=== PATIENT | male | born 1960 | race Caucasian/White ===

== ENCOUNTER 2020-11-27 12:23 | Inpatient (IN) | payer MEDICAID ==
[~2020-11-27] VITALS: Ht 165.1 cm; Wt 97.1 kg
[2020-11-27] VITALS (12 sets, daily range): BP systolic 103–166; BP diastolic 61–114
--- NOTE | 2020-11-27 12:47 | NUR ---
MARISABEL. HANDED ON [employer] SWAP[facility].
--- NOTE | 2020-11-27 14:01 | NUR ---
Patient taken to CT scan via wheelchair by tech.
--- NOTE | 2020-11-27 14:59 | NUR ---
Dr. Mullen and Markel Witt is evaluating patient at bedside.
--- NOTE | 2020-11-27 14:59 | NUR ---
Patient ambualted to bed 11. RN evaluating the patient at bedside.
--- NOTE | 2020-11-27 15:00 | NUR ---
60 y/o M BIB self c/o abdominal pain and bloating x 1 day. Patient reports he has had intermittent abdominal pain to RLQ x 2-3 weeks, however, states no pain at this time. Patient reports bloating and pressure with associated nausea, SOB and cough. Patient also reports swelling to bilateral feet since Thursday. Patient denies vomiting, diarrhea, fever, chills, chest pain, dizziness. Pt placed into media analytics manager showing HR 171. SpO2 97% on room air; RR even/unlabored. Bed locked in lowest position, side rails x 2, call light in reach. PMH/Sx/Meds: Denies Allergies: Tylenol
[2020-11-27] MEDS ORDERED: NACL 0.9% 1,000 ML IV ONE (15:05)
--- NOTE | 2020-11-27 15:26 | NUR ---
EMt at bedside.
--- NOTE | 2020-11-27 15:32 | NUR ---
Blood sample and cultures collected, handed to CPT Neda at ER bedside.
[2020-11-27 15:35] LABS: BASOPHILS % (AUTO) 0.4 % (0.0-2.0); EOSINOPHILS # (AUTO) 0.1 K/uL (0-0.4); EOSINOPHILS % (AUTO) 1.4 % (0.0-4.0); LYMPHOCYTES # (AUTO) 1.4 K/uL (2.0-11.5); LYMPHOCYTES % (AUTO) 26.9 % (20.5-51.1); MEAN CORPUSCULAR HEMOGLOBIN 33 pg (27-31); MEAN CORPUSCULAR HGB CONC 33 g/dL (33-37); MEAN CORPUSCULAR VOLUME 97.9 fL (80-94); MONOCYTES # (AUTO) 0.4 K/uL (0.8-1.0); MONOCYTES % (AUTO) 7.5 % (1.7-9.3); NEUTROPHILS # (AUTO) 3.3 K/uL (1.8-7.7); NEUTROPHILS % (AUTO) 63.8 % (42.2-75.2); PLATELET COUNT (AUTO) 130 K/uL (140-450); RED CELL DISTRIBUTION WIDTH 14.1 % (11.6-13.7); WHITE BLOOD COUNT (AUTO) 5.1 K/uL (4.8-10.8)
[2020-11-27] MEDS ORDERED: ASPIRIN 325 MG TAB ONE (15:39)
[2020-11-27] MEDS ORDERED: DILTIAZEM 25 MG/5 ML VIAL IVP ONE (15:40)
[2020-11-27] MEDS ORDERED: ASPIRIN 325 MG TAB PO ONE (15:40)
[2020-11-27] MEDS ORDERED: FUROSEMIDE 40 MG/4 ML VIAL IVP SCH (15:40)
--- NOTE | 2020-11-27 15:41 | NUR ---
Dr. Mullen and ROBERTH Witt is reevaluating patient at bedside.
--- NOTE | 2020-11-27 15:50 | NUR ---
Dr. Mullen and ROBERTH Witt at bedside reevaluating response of Cardizem and Lasix IVP.
--- NOTE | 2020-11-27 16:01 | NUR ---
Patient responsed to medication; HR 113 at this time. Patient reports "I feel better now." Will continue to monitor HR.
[2020-11-27] MEDS ORDERED: guaiFENesin DM 200/20 MG-10 ML 10 ML UDC PO PRN (16:10)
[2020-11-27] MEDS ORDERED: ZOLPIDEM 5 MG TAB PO PRN (16:10)
[2020-11-27] MEDS ORDERED: HYDROcodone/APAP 7.5/325 MG 1 TAB PO PRN (16:10)
[2020-11-27] MEDS ORDERED: ACETAMINOPHEN 325 MG TAB PO PRN (16:10)
[2020-11-27] MEDS ORDERED: NACL 0.9% 1,000 ML IV SCH (16:10)
[2020-11-27] MEDS ORDERED: POTASSIUM CHLORIDE 10 MEQ TABER PO PRN (16:10)
[2020-11-27] MEDS ORDERED: DOCUSATE SODIUM 100 MG GELCAP PO PRN (16:10)
[2020-11-27] MEDS ORDERED: ONDANSETRON 4 MG/2 ML VIAL IM/IVP PRN (16:10)
--- NOTE | 2020-11-27 16:10 | NUR ---
HR [address] Mullen and ROBERTH Witt made aware.
[2020-11-27 16:13] LABS: ALBUMIN 4.2 g/dL (3.4-5.0); ANION GAP 13.8 (8-16); CARBON DIOXIDE 26.1 mmol/L (21-32); CREATININE 1.2 mg/dL (0.6-1.3); POTASSIUM 3.9 mmol/L (3.5-5.1); TOTAL BILIRUBIN 2.4 mg/dL (0.0-1.0)
[2020-11-27] MEDS ORDERED: NITROGLYCERIN 0.4 MG TAB SL PRN (16:15)
--- NOTE | 2020-11-27 16:16 | NUR ---
Contacted ICU, spoke with Joshua who states ARYA Lucas is in another bed at this time. Call back in 5 min.
--- NOTE | 2020-11-27 16:20 | NUR ---
Urinal provided at bedside; patient unable to void at this time.
--- NOTE | 2020-11-27 16:30 | NUR ---
Bedside report given to ARYA Lucas @ ICU-3.
--- NOTE | 2020-11-27 16:30 | NUR ---
RECEIVED BEDSIDE REPORT FROM ER NURSE. ADMITTED 60 Y/O MALE WITH HX OF APPENDECTOMY AND PNA. CC OF ABD PAIN AND BLOATING SINCE AM. ADMITTING DX OF AFIB RVR AND NEW ONSET CHF. PT IS AOX4, ABLE TO MAKE NEEDS KNOWN, AMBULATORY, B/B CONTINENT. SKIN IS INTACT. AFIB RVR ON MONITOR. NO C/O PAIN, WITH C/O ABD BLOATING AND SOB. ON 2L O2 VIA NC. O2SAT 94-96%. WITH IV RAC 20G RUNNING NS AT 45CC/HR. SAFETY PRECAUTIONS IN PLACE. CALL LIGHT WITHIN REACH. WILL CONTINUE TO MONITOR
--- NOTE | 2020-11-27 16:35 | NUR ---
MRSA NARES COLLECTED AND DELIVERED TO LAB. ALLERGY RED WRIST BAND APPLIED.
--- NOTE | 2020-11-27 16:49 | NUR ---
DR HILL CALLED ON REGARDING AMIODARONE LOADING DOSE. PER DR HILL, STARTED WITH THE 150 MG LOADING DOSE, AND THEN THE AMIODARONE DRIP PER PROTOCOL. WILL INPUT ORDER.
[2020-11-27 17:02] LABS: PROTHROMBIN TIME 10.6 secs (10.8-13.4)
[2020-11-27 17:12] LABS: CHOL/HDL RATIO 4.9 (1-4.5); FREE T4 (FREE THYROXINE) 1.12 ng/dL (0.76-1.46); MAGNESIUM 2.3 mg/dL (1.8-2.4); PHOSPHORUS 4.6 mg/dL (2.5-4.9); THYROID STIMULATING HORMONE 1.55 uIU/mL (0.34-3.74)
[2020-11-27] MEDS ORDERED: AMIODARONE 150 MG in DEXTROSE 5% 100 ML IV SCH (17:15)
--- NOTE | 2020-11-27 17:20 | NUR ---
AMIODARONE IV LOADING DOSE STARTED ORDERED
--- NOTE | 2020-11-27 17:30 | NUR ---
AMIODARONE IV MAINTENANCE DOSE 1MG/MIN STARTED ORDERED
[2020-11-27] MEDS: ATORVASTATIN 20 MG TAB PO SCH (17:36)
--- NOTE | 2020-11-27 17:40 | NUR ---
SCHEDULED MEDS HEPARIN SUBQ AND LIPITOR GIVEN PER MD ORDER, MEDS EDUCATION PROVIDED, PATIENT VERBALIZED UNDERSTANDING. PATIENT TOLERATED PO AND SUBQ WELL. PATIENT AWAKE AND RESTING ON BED AT THIS TIME. DENIED OF ANY DISTRESS. SAFETY MEASURES IN PLACE.
[2020-11-27] MEDS: AMIODARONE 450 MG in DEXTROSE 5% 250 ML IV SCH (17:43)
--- NOTE | 2020-11-27 18:30 | NUR ---
PT EATING DINNER AT THIS TIME. WITH C/O DECREASED APPETITE D/T BLOATING
--- NOTE | 2020-11-27 19:10 | NUR ---
RECEIVED PATIENT FROM AM SHIFT NURSE FOR CONTINUITY OF CARE. AAOX4. RESPIRATIONS EVEN, SLIGHTLY LABORED UPON EXERTION. CONTINUES ON O2 2L VIA NC, O2SAT 94%. NO S/S RESPIRATORY DISTRESS AT THIS TIME. S1/S2 AUSCULTATED. SKIN WARM, DRY. IV SITE NOTED TO RIGHT AC 20G PATENT/INTACT, INFUSING FLUIDS AND AMIODARONE. NO C/O PAIN. ABDOMEN ROUND, SOFT, SLIGHTLY TENDER AND DISTENDED. BOWEL SOUNDS ACTIVE x4 QUADRANTS. PATIENT IS CONTINENT OF B/B. PLAN OF CARE DISCUSSED. FREQUENT ROUNDS BY ALL STAFF.
[2020-11-27] MEDS ORDERED: CRUSHER, PILL MC ONE (20:03)
[2020-11-27] MEDS: METOPROLOL 25 MG TAB PO SCH (20:22)
--- NOTE | 2020-11-27 21:13 | NUR ---
DUE MEDS GIVEN. PATIENT SITTING UP AT BEDSIDE FOR COMFORT. FREQUENT ROUNDS BY ALL STAFF.
--- NOTE | 2020-11-27 23:00 | NUR ---
PATIENT EATING SNACK AT BEDSIDE. NO ABDOMINAL DISCOMFORT NOTED AT THIS TIME. WILL CONTINUE TO MONITOR.
[2020-11-27 23:17] LABS: APPEARANCE,URINE CLOUDY (CLEAR); BILIRUBIN,URINE 2+ (NEGATIVE); BLOOD, URINE NEGATIVE (NEGATIVE); COLOR,URINE ORANGE (YELLOW); LEUKOCYTE ESTERASE ,URINE NEGATIVE (NEGATIVE); NITRITE, URINE POSITIVE (NEGATIVE); PH,URINE 5.5 (5.0-9.0); UGLUCOSE NEGATIVE (NEGATIVE)
[2020-11-27 23:32] LABS: RBC,URINE 0-5 /HPF (0-5); URINE AMORPHOUS URATE 4+ /HPF (None Seen); WBC,URINE 0-5 /HPF (0-5)
[2020-11-27 23:41] LABS: BARBITURATE, URINE NEGATIVE ng/ml (NEG <=200); BENZODIAZEPINE, URINE NEGATIVE ng/mL (NEG <=200); CANNABINOID, URINE NEGATIVE ng/mL (NEG <=50); COCAINE, URINE NEGATIVE ng/mL (NEG <=300); OPIATE, URINE NEGATIVE ng/mL (NEG <=2000); PHENCYCLIDINE SCREEN,URINE NEGATIVE ng/mL (NEG <=25)
[2020-11-28] VITALS (18 sets, daily range): BP systolic 85–140; BP diastolic 61–98
--- NOTE | 2020-11-28 00:25 | NUR ---
PT UNAVAILABLE AT THIS TIME FOR EKG
--- NOTE | 2020-11-28 01:02 | NUR ---
EKG PERFORMED ORDERED AND ABNORM RESULTS PRESENTED TO RN. RN WAS PROVIDED A COPY. A COPY WAS PLACED IN PT CHART ALONG W/ STRIP
--- NOTE | 2020-11-28 01:07 | NUR ---
PATIENT HAD A BM. ASSISTED FROM BEDSIDE COMMODE TO BED SAFELY. ALL NEEDS ANTICIPATED AND MET. FREQUENT VISUAL CHECKS BY ALL STAFF.
--- NOTE | 2020-11-28 03:31 | NUR ---
PATIENT IS ASLEEP.
[2020-11-28 05:25] LABS: BASOPHILS % (AUTO) 0.2 % (0.0-2.0); EOSINOPHILS % (AUTO) 0.1 % (0.0-4.0); HEMOGLOBIN 14.7 g/dL (12.0-18.0); LYMPHOCYTES # (AUTO) 0.7 K/uL (2.0-11.5); LYMPHOCYTES % (AUTO) 11.2 % (20.5-51.1); MEAN CORPUSCULAR HEMOGLOBIN 33 pg (27-31); MEAN CORPUSCULAR HGB CONC 33 g/dL (33-37); MEAN CORPUSCULAR VOLUME 98.5 fL (80-94); MONOCYTES # (AUTO) 0.5 K/uL (0.8-1.0); MONOCYTES % (AUTO) 7.1 % (1.7-9.3); NEUTROPHILS # (AUTO) 5.2 K/uL (1.8-7.7); NEUTROPHILS % (AUTO) 81.4 % (42.2-75.2); PLATELET COUNT (AUTO) 120 K/uL (140-450); RED BLOOD CELL COUNT(AUTO) 4.47 MIL/uL (4.20-6.10); RED CELL DISTRIBUTION WIDTH 14.1 % (11.6-13.7); WHITE BLOOD COUNT (AUTO) 6.4 K/uL (4.8-10.8)
--- NOTE | 2020-11-28 05:51 | NUR ---
PATIENT RESTING COMFORTABLY IN BED. NO S/S RESPIRATORY DISTRESS. NO C/O PAIN. FREQUENT ROUNDS BY ALL STAFF.
[2020-11-28 06:11] LABS: ANION GAP 15.4 (8-16); CARBON DIOXIDE 24.4 mmol/L (21-32); CREATININE 1.3 mg/dL (0.6-1.3); POTASSIUM 3.8 mmol/L (3.5-5.1)
[2020-11-28 07:08] LABS: T4 (THYROXINE) 7.9 ug/dL (4.5-12.0)
--- NOTE | 2020-11-28 07:12 | NUR ---
RECEIVED BEDSIDE REPORT FROM RIBBON CLEANER NURSE RADHA FOR CONTINUITY OF CARE. PATIENT IS SLEEPING ON BED COMFORTABLY AT THIS TIME, AROUSABLE TO VOICE. RESPIRATION EVEN, UNLABORED ON 2 LPM VIA NC, LUNG SOUND DIMINISHES, SPO2 97% AT THIS TIME. NO SIGNS OF ACUTE DISTRESS NOTED. IV ON RAC 20G, CLEAN AND INTACT, RUNNING NS AT 40 ML/HR AND AMIODARONE DRIP HELD DUE TO LOW BP. SKIN WARM TO TOUCH, CLEAN AND DRY. PATIENT IS CONTINENT, AND ABLE TO USE THE BEDSIDE COMMODE WITH MINIMAL ASSISTANCE. SAFETY MEASURES IN PLACE. BED IN LOW POSITION, CALL LIGHT WITHIN REACH, AND BED LOCKED.
--- NOTE | 2020-11-28 08:17 | NUR ---
PATIENT IS EATING BREAKFAST ON BED AT THIS TIME. DENIED OF ANY DISTRESS. SAFETY MEASURES IN PLACE.
--- NOTE | 2020-11-28 08:21 | NUR ---
DR HALL IS ASSESSING PATIENT AT BEDSIDE AND DISCUSSING PLAN OF CARE. NO SIGNS OF ACUTE DISTRESS NOTED. SAFETY MEASURES IN PLACE.
[2020-11-28] MEDS: ECOTRIN 81 MG TABEC PO SCH (08:39)
[2020-11-28] MEDS: PANTOPRAZOLE 40 MG TABEC PO SCH (08:39)
[2020-11-28] MEDS: METOPROLOL 25 MG TAB PO SCH ×2 (08:39→21:13)
--- NOTE | 2020-11-28 08:45 | NUR ---
SCHEDULED AM MEDS ADMINISTERED PER MD ORDER, MEDS EDUCATION PROVIDED, PATIENT VERBALIZED UNDERSTANDING. PATIENT AWAKE AND RESTING ON BED AT THIS TIME. DENIED OF ANY DISTRESS. NO SIGNS OF ACUTE DISTRESS NOTED. SAFETY MEASURES IN PLACE. INSTRUCTED PATIENT TO USE THE CALL LIGHT FOR ANY ASSISTANCE AND PATIENT SAID OK.
--- NOTE | 2020-11-28 08:47 | NUR ---
PER DR HALL, RESUMED AMIODARONE DRIP SINCE BP IS STABLE AND KEEP HEART RATE BELOW 120 BPM. RESUMED PER MD ORDER.
--- NOTE | 2020-11-28 08:47 | NUR ---
PATIENT HAS BEEN SCREENED AND CATEGORIZED MODERATE NUTRITION RISK. PATIENT WILL BE SEEN WITHIN 3-5 DAYS OF ADMISSION. 11/30/20 12/02/[address]
[2020-11-28] MEDS: FUROSEMIDE 40 MG/4 ML VIAL IVP SCH ×2 (08:52→17:04)
[2020-11-28] MEDS ORDERED: lisinopriL 5 MG TAB PO SCH (09:00)
--- NOTE | 2020-11-28 09:26 | NUR ---
ROCEPHIN GIVEN, MED EDUCATION PROVIDED, PATIENT VERBALIZED UNDERSTANDING. US TECH IS AT BEDSIDE DOING US. NO SIGNS OF ACUTE DISTRESS NOTED. SAFETY MEASURES IN PLACE.
--- NOTE | 2020-11-28 10:16 | NUR ---
DC PLANNIN60 YEARS OLD MALE PATIENT WAS ADMITTED FROM HOME WITH A DX OF A-FIB WITH RVR, NEW ONSET OF CHF. PT HAS NO MEDICAL HISTORY. CXR SHOWED MILD CARDIOMEGALY AND MODERATE INTERSTITIAL PULMONARY EDEMA. CT ABD SHOWED SMALL RIGHT PLEURAL EFFUSION AND TRANCE LEFT PLEURAL EFFUSION. ADMINISTERED IVF, AMIODARONE DRIP AND ROCEPHIN IV ABX AND CONTINUED HOME MEDS. CONSULTED WITH PULMO AND CARDIO. DC PLAN TO GO HOME WHEN STABLE. CM TO FOLLOW
[2020-11-28] MEDS: AMIODARONE 450 MG in DEXTROSE 5% 250 ML IV SCH (10:30)
--- NOTE | 2020-11-28 10:33 | NUR ---
PATIENT IS RESTING IN BED AT THIS TIME. RESPIRATION EVEN, UNLABORED ON 2 LPM VIA NC. DENIED OF ANY DISTRESS. SAFETY MEASURES IN PLACE.
--- NOTE | 2020-11-28 11:22 | NUR ---
DR HILL IS ASSESSING PATIENT AT BEDSIDE. DISCUSSED PLAN OF CARE WITH PATIENT.
--- NOTE | 2020-11-28 11:48 | NUR ---
LUNCH TRAY DELIVERED TO PATIENT, PATIENT IS EATING LUNCH ON BED. DENIED OF ANY DISTRESS. SAFETY MEASURES IN PLACE.
--- NOTE | 2020-11-28 11:52 | NUR ---
DR MARY IS ASSESSING AND TALKING TO PATIENT AT BEDSIDE.
[2020-11-28] MEDS ORDERED: DIGOXIN 0.25 MG/ML AMP IV SCH (12:00)
--- NOTE | 2020-11-28 12:15 | NUR ---
0.5 MG DIGOXIN ONCE TIME ORDER GIVEN ORDER BY DR HILL, MED EDUCATION PROVIDED, PATIENT VERBALIZED UNDERSTANDING. EXPLAINED TO PATIENT THAT HE IS CLEAR FROM CARDIAC MD AND WILL BE TRANSFER TO TELE UNIT, PATIENT VERBALIZED UNDERSTANDING. SAFETY MEASURES IN PLACE.
--- NOTE | 2020-11-28 12:19 | NUR ---
RUDY THE MEAGHANECE IS CALLING FOR UPDATE, OBTAINED PERMISSION FROM PATIENT AND OK TO GIVE INFORMATION. UPDATED RUDY WITH PATIENT'S CURRENT CONDITION AND PLAN OF CARE. RUDY WAS AWARE THAT PATIENT WILL BE TRANSFER TO TELE UNIT THIS EVENING.
--- NOTE | 2020-11-28 13:20 | NUR ---
PATIENT REQUESTS FOR AN EXTRA BLANKET, PROVIDED. PATIENT IS RESTING ON BED AT THIS TIME. NO SIGNS OF ACUTE DISTRESS NOTED. SAFETY MEASURES IN PLACE.
--- NOTE | 2020-11-28 15:40 | NUR ---
PATIENT IS NAPPING ON BED. RESPIRATION EVEN, UNLABORED ON 2 LPM VIA NC. NO SIGNS OF ACUTE DISTRESS NOTED. SAFETY MEASURES IN PLACE.
[2020-11-28] MEDS: ATORVASTATIN 20 MG TAB PO SCH (17:04)
--- NOTE | 2020-11-28 17:09 | NUR ---
ADMINISTERED SCHEDULED MEDS PER MD ORDER, MEDS EDUCATION PROVIDED. PATIENT VERBALIZED UNDERSTANDING. PATIENT IS AWAKE AND RESTING ON BED. NO SIGNS OF DISTRESS NOTED. SAFETY MEASURES IN PLACE.
--- NOTE | 2020-11-28 17:22 | NUR ---
REPORT GIVEN TO LINDA KOENIG, PATIENT WILL BE TRANSFER TO ROOM 123B.
--- NOTE | 2020-11-28 17:25 | NUR ---
RECEIVED REPORT FOR KATIE KOENIG FOR CONTINUITY OF CARE. PATIENT IS AOX4, ABLE TO MAKE NEEDS KNOWN, AND CAN AMBULATE. ON 2L NASAL CANNULA. AFIB ON MONITOR. ON CARDIAC DIET. USES THE URINAL. IV CLEAN, DRY, AND INTACT, ON RIGHT ANTECUBITAL 20G INFUSING NORMAL SALINE 0.9 AT 45 ML/HR. BLOOD CULTURE PENDING. METAL REFINER AND SAFETY MEASURES IN PLACE. BED LOCKED, BED IN LOW POSITION. WILL CONTINUE TO MONITOR.
--- NOTE | 2020-11-28 17:34 | NUR ---
PATIENT IS TRANSFERRED TO ROOM 123B WITH WHEELCHAIR. TELE MONITOR APPLIED. ALL BELONGINGS TRANSFERRED WITH PATIENT. PATIENT IS IN STABLE CONDITION.
--- NOTE | 2020-11-28 17:40 | NUR ---
PATIENT ARRIVED ON UNIT VIA WHEELCHAIR. ALL QUESTIONS ANSWERED AND NEEDS PROVIDED. WILL CONTINUE TO MONITOR.
[2020-11-28] MEDS ORDERED: DIGOXIN 0.25 MG/ML AMP IV ONE (18:00)
--- NOTE | 2020-11-28 18:46 | NUR ---
CHECKED ON PATIENT. RESTING, NO SIGN OF DISTRESS OR PAIN. WILL CONTINUE TO MONITOR. WILL ENDORSE TO DUCK OPERATOR RN.
--- NOTE | 2020-11-28 19:25 | NUR ---
ENDORSED CARE TO NIKOS KOENIG FOR CONTINUITY OF CARE.
--- NOTE | 2020-11-28 19:30 | NUR ---
RECEIVED CARE AND REPORT FROM DAYSHIFT RN. PATIENT ALERT AND ORIENTED X4 TO PERSON, PLACE TIME AND EVENT. PATIENT RESTING IN THE BED IN A POSITION OF COMFORT, HOB 30 DEGREES, DENIES SOB, DIFFICULTY BREATHING AND CHEST PAIN WHEN ASKED. PATIENT DENIES ANY COMPLAINTS OF PAIN WHEN ASKED. PATIENT ON MD ORDER OF CARDIAC DIET, TOLERATING WELL. PATIENT CONNECTED TO NASAL CANULA AT 2 LPM. PATIENT HEART AND LUNG SOUNDS AUSCULTATED, IRREGULAR HR, LUNG SOUNDS CLEAR EQUAL BILATERALLY. ABDOMINAL SOUNDS AUSCULTATED, NORMOACTIVE X4 ALL QUADRANTS, FLATUS PRESENT. PATIENT CONNECTED TO BEDSIDE TELE MONITOR, AFIB HR 94, RR 20, OXYGEN SATURATION AT 97%, NO OBVIOUS SIGNS OF DISTRESS OBSERVED WHILE AT BEDSIDE. PATIENT CURRENT IV SITES INCLUDE RIGHT AC 20G RUNNING NS 0.9% AT 45 ML/HR. IV SITE INTACT, DRESSING DRY AND FLUSHES WELL. PATIENT CURRENTLY ABLE TO AMBULATE WITH RN ASSISTANCE AND ABLE TO USE BEDSIDE URINAL. PATIENT DENIES HAVING ANY DIFFICULTY WITH URINATION OR BOWEL MOVEMENTS. SKINS INTACT. BED LOCKED AND LOWERED INTO A POSITION OF SAFETY AND PATIENT BEING OFFLOADED WITH USE OF PILLOWS AND ASSISTED WITH REPOSITIONING. PATIENT ORIENTED TO THE ROOM, PROMOTING A RESTFUL ENVIRONMENT WITH DECREASED STIMULI, AND NURSE CALL LIGHT GIVEN TO PATIENT. WILL CONTINUE TO REASSESS OFTEN, CLOSELY MONITOR AND FREQUENTLY ROUND THROUGHOUT THE SHIFT.
--- NOTE | 2020-11-28 20:10 | NUR ---
PATIENT HAD URINE VOID OF 400 ML. NO OBVIOUS SIGNS OF DISTRESS OBSERVED WHILE AT BEDSIDE. WILL CONTINUE TO CLOSELY MONITOR AND FREQUENTLY ROUND.
[2020-11-28] MEDS: APIXABAN 2.5 MG TAB PO SCH (21:14)
--- NOTE | 2020-11-28 21:23 | NUR ---
SCHEDULED MEDICATIONS ADMINISTERED ORDERED BY MD. TOLERATING THERAPIES WELL, NO OBVIOUS SIGNS OF DISTRESS OBSERVED. WILL CONTINUE TO CLOSELY MONITOR AND FREQUENTLY ROUND.
--- NOTE | 2020-11-28 23:18 | NUR ---
PATIENT RESTING IN A POSITION OF COMFORT, VS STABLE, PATIENT STATED TRYING TO GET SOME SLEEP WHEN ASKED. NO OBVIOUS SIGNS OF DISTRESS OBSERVED WHILE AT BEDSIDE. WILL CONTINUE TO CLOSELY MONITOR AND FREQUENTLY ROUND.
[2020-11-29] VITALS: BP 126/90
[2020-11-29] MEDS ORDERED: DIGOXIN 0.25 MG/ML AMP IV ONE
--- NOTE | 2020-11-29 00:25 | NUR ---
SCHEDULED MEDICATIONS GIVEN ORDERED BY THE MD. PATIENT TOLERATING THERAPIES WELL. WILL CONTINUE TO CLOSELY MONITOR AND FREQUENTLY ROUND.
--- NOTE | 2020-11-29 00:39 | NUR ---
PATIENT HAD SECOND VOID OF 300 ML. NO OBVIOUS SIGNS OF DISTRESS OBSERVED WHILE AT BEDSIDE. PATIENT STATES THAT HE FEELS GOOD WHEN ASKED. NO OBVIOUS SIGNS OF DISTRESS OBSERVED WHILE AT BEDSIDE. WILL CONTINUE TO CLOSELY MONITOR AND FREQUENTLY ROUND.
--- NOTE | 2020-11-29 02:31 | NUR ---
PATIENT ASLEEP, NO OBVIOUS SIGNS OF DISTRESS OBSERVED WHILE AT BEDSIDE. VS STABLE, WILL COTMEAGHANNPETRAT O CLOSELY MONITOR AND FREQUENTLY ROUND.
[2020-11-29 04:00] VITALS: BP 134/75
--- NOTE | 2020-11-29 04:39 | NUR ---
PATIENT VS STABLE, RESTING IN A POSITION OF COMFORT, TOLERATING THERAPIES WELL. WILL CONTINUE TO CLOSELY MONITOR AND FREQUENTLY ROUND.
[2020-11-29 04:56] LABS: BASOPHILS % (AUTO) 0.4 % (0.0-2.0); EOSINOPHILS # (AUTO) 0.1 K/uL (0-0.4); EOSINOPHILS % (AUTO) 1.5 % (0.0-4.0); HEMATOCRIT 40.6 % (36-52); HEMOGLOBIN 13.7 g/dL (12.0-18.0); LYMPHOCYTES # (AUTO) 0.9 K/uL (2.0-11.5); LYMPHOCYTES % (AUTO) 13.8 % (20.5-51.1); MEAN CORPUSCULAR HEMOGLOBIN 33 pg (27-31); MEAN CORPUSCULAR HGB CONC 34 g/dL (33-37); MEAN CORPUSCULAR VOLUME 96.5 fL (80-94); MONOCYTES # (AUTO) 1.1 K/uL (0.8-1.0); MONOCYTES % (AUTO) 15.7 % (1.7-9.3); NEUTROPHILS # (AUTO) 4.6 K/uL (1.8-7.7); NEUTROPHILS % (AUTO) 68.6 % (42.2-75.2); PLATELET COUNT (AUTO) 98 K/uL (140-450); RED BLOOD CELL COUNT(AUTO) 4.21 MIL/uL (4.20-6.10); RED CELL DISTRIBUTION WIDTH 13.9 % (11.6-13.7); WHITE BLOOD COUNT (AUTO) 6.7 K/uL (4.8-10.8)
[2020-11-29 07:24] LABS: ANION GAP 13.9 (8-16); CARBON DIOXIDE 26.9 mmol/L (21-32); CREATININE 1.3 mg/dL (0.6-1.3); POTASSIUM 3.8 mmol/L (3.5-5.1)
--- NOTE | 2020-11-29 07:30 | NUR ---
REPORT AND CARE ENDORSED TO DAYSHIFT RN, VS STABLE.
--- NOTE | 2020-11-29 07:32 | NUR ---
RECEIVED REPORT FROM NIGHT NURSE. PER NIGHT NURSE PT IS A&OX4. PT IS ON A CARDIAC DIET AND BREATHING ON 2LNC. PT IS ON A CARDIAC DIET AND USES URINAL. PT'S SKIN IS INTACT.PT DENIED PAIN ALL NIGHT. CXR FOUND BILAT PLEURAL EFFUSION. ABDCT W/O CONTRAST FUND A HIATAL HERNIA WITH FAT TISSUE. INTRODUCED MYSELF TO PT. CALL LIGHT IS WITHIN REACH. WILL CONTINUE PLAN OF CARE.
[2020-11-29 08:00] VITALS: BP 139/77
[2020-11-29] MEDS: APIXABAN 2.5 MG TAB PO SCH ×2 (09:00→21:00)
[2020-11-29] MEDS: ECOTRIN 81 MG TABEC PO SCH (09:00)
[2020-11-29] MEDS ORDERED: lisinopriL 5 MG TAB PO SCH (09:00)
[2020-11-29] MEDS: METOPROLOL 25 MG TAB PO SCH (09:45)
[2020-11-29] MEDS: PANTOPRAZOLE 40 MG TABEC PO SCH (09:45)
[2020-11-29] MEDS: FUROSEMIDE 40 MG/4 ML VIAL IVP SCH ×2 (09:46→17:29)
--- NOTE | 2020-11-29 09:55 | NUR ---
ADMINISTERED SCHEDULED MEDICATIONS PER MD ORDER. VS: BP:139/77, RI:94, RR:20. HELD ELIQUIS AND ASPIRIN DUE TO PLT LEVEL BEING 98L AND LEIA HIGH RISK FOR BLLEDING. PT WAS EDUCATED ON MEDICATIONS MOA AND SIDE EFFECTS. PT WAS ALSO NOTIFIED OF THE HELDING OF ELIQUIS AND ASPIRIN DUE TO LOW PLT COUNT. PT VERBALIZED UNDERSTANDING.PT HAD QUESTIONS ON HOW TO REDUCE DRY THROAT. PT WAS EDUCATED ON THE IMPORTANCE OF HYDRATION. I PLACED A PILLOW BEHIND PTS BACK ALONG WITH HOB TO FACILITATE BREATHING. CALL LIGHT IS WITHIN REACH. WILL CONTINUE TO MONITOR.
--- NOTE | 2020-11-29 11:07 | NUR ---
DAUGHTER TEJAS MARTIN CALLED STATING THAT SHE WANTED TO SPEAK TO PT'S MD. SHE SAID MD WAS SUPPOSED TO CALL HER YESTERDAY PER NURSE IN CARE OF PT YESTERDAY. HER PHONE NUMBER IS [phone]. I TOLD HER I WOUL NOTIFY THE DOCTOR AND UPDATE HER WITH THE STATUS OF THAT CALL SOON POSSIBLE.
--- NOTE | 2020-11-29 11:36 | NUR ---
NOTIFIED OF PT'S DAUGHTER REQUEST TO SPEAK TO HIM IN REGARDS PT STATUS. I PROVIDED PHONE NUMBER OF PT'S DAUGHTER [id number]. DR STATED HE WILL CALL HER SOON HE HAS A CHANCE PER MD HALL.WILL NOTIFY PTY'S DAUGHTER MIRI OF MESSAGE.
[2020-11-29 12:00] VITALS: BP 115/81
[2020-11-29] MEDS: DIGOXIN 0.25 MG TAB PO SCH (12:32)
--- NOTE | 2020-11-29 12:36 | NUR ---
ADMINISTERED DIGOXIN 0.25 MG TABLET SCHEDULED CHECK VITAL SIGNS BP 126/82 NM 99. NOTIFIED TRAINING OFFICER FOR GIVING MEDICATION. SAFETY MEASURES IN PLACE AND CALL LIGHT WITHIN REACH. WILL CONTINUE TO MONITOR.
--- NOTE | 2020-11-29 13:37 | NUR ---
ATTEMPTED TO REACH PT'S DAUGHTER MS. MIRI MARTIN AT . SHE DID NOT SPORT PSYCHOLOGIST. I LEFT A MESSAGE DISCUSSING MD ORDER OF CALLING HER BACK SOON HE WAS ABLE TOO.
[2020-11-29 16:00] VITALS: BP 127/85
[2020-11-29] MEDS: ATORVASTATIN 20 MG TAB PO SCH (17:19)
--- NOTE | 2020-11-29 17:33 | NUR ---
ADMINISTERED SCHEDULED MEDICATIONS PER MD ORDER. VS: B/P 127/77, PA: 95, RR:22. PT AND FAMILY WERE EDUCATED ABOUT MEDICATIONS, MOA, SIDE EFFECTS AND DISEASE PROCESS. PT AND FAMILY WERE READILY AVAILABLE TO LEARN ABOUT CHANGING LIFE STYLE CHANGES SUCH DIET, EXERCISED AND WEIGHT REDUCTION. PT AND FAMILY VERBALIZED UNDERSTANDING. PT APPEARS NOT TO BE IN DISTRESS. PT IS SITTING WITH HOB UP AND ONE PILLOW ON BACK. CALL LIGHT IS WITHIN REACH. WILL CONTINUE TO MONITOR.
--- NOTE | 2020-11-29 19:35 | NUR ---
RECEIVED REPORT FROM AM RN. PT ON BED SITTING AWAKE, ALERT NMO SOB NOTED. IVF OF NS INFUSING TKO ON THE RAC 20G. DENIES PAIN. SAFETY MEASURES IN PLACE. CALL LIGHT WITHIN REACH.
--- NOTE | 2020-11-29 19:35 | NUR ---
ENDORSED TO NIGHT NURSE FOR CONTINUITY OF CARE.
[2020-11-29 20:00] VITALS: BP 125/70
[2020-11-29] MEDS: METOPROLOL 50 MG TAB PO SCH (20:46)
--- NOTE | 2020-11-29 20:46 | NUR ---
MEDICATION GIVEN SCHEDULED PER MD ORDERED.
[2020-11-30] VITALS: BP 132/88
--- NOTE | 2020-11-30 02:01 | NUR ---
MADE ROUNDS PATIENT ASLEEP IN NO ACUTE DISTRESS.
[2020-11-30 04:00] VITALS: BP 142/96
[2020-11-30 05:29] LABS: BASOPHILS % (AUTO) 0.5 % (0.0-2.0); EOSINOPHILS # (AUTO) 0.2 K/uL (0-0.4); EOSINOPHILS % (AUTO) 3.7 % (0.0-4.0); HEMOGLOBIN 14.8 g/dL (12.0-18.0); LYMPHOCYTES # (AUTO) 1.6 K/uL (2.0-11.5); LYMPHOCYTES % (AUTO) 27.3 % (20.5-51.1); MEAN CORPUSCULAR HEMOGLOBIN 33 pg (27-31); MEAN CORPUSCULAR HGB CONC 34 g/dL (33-37); MONOCYTES # (AUTO) 0.9 K/uL (0.8-1.0); MONOCYTES % (AUTO) 14.8 % (1.7-9.3); NEUTROPHILS # (AUTO) 3.1 K/uL (1.8-7.7); NEUTROPHILS % (AUTO) 53.7 % (42.2-75.2); PLATELET COUNT (AUTO) 114 K/uL (140-450); RED BLOOD CELL COUNT(AUTO) 4.54 MIL/uL (4.20-6.10); RED CELL DISTRIBUTION WIDTH 13.5 % (11.6-13.7); WHITE BLOOD COUNT (AUTO) 5.8 K/uL (4.8-10.8)
[2020-11-30 06:49] LABS: ANION GAP 10.3 (8-16); CARBON DIOXIDE 32.2 mmol/L (21-32); CREATININE 1.3 mg/dL (0.6-1.3); POTASSIUM 3.5 mmol/L (3.5-5.1)
--- NOTE | 2020-11-30 07:25 | NUR ---
ENDORSED TO AM RN FOR CONTINUITY OF CARE. PT IN STABLE CONDITION.
--- NOTE | 2020-11-30 07:27 | NUR ---
RECEIVED BEDSIDE REPORT FROM MACHINE TURNER NURSE FOR CONTINUITY OF CARE. PT IS AO X4, ABLE TO MAKE NEEDS KNOWN. RESPIRATIONS EVEN AND UNLABORED. ON ROOM AIR AND NO RESPIRATORY DISTRESS NOTED. SKIN IS WARM, DRY, AND NON-DIAPHORETIC. IV SITE ON RAC 20G. INTACT AND PATENT. IV SITE RUNNING TKO. PLAN OF CARE DISCUSSED. SAFETY PRECAUTIONS IN PLACE. BED IN LOW POSITION. CALL LIGHT WITHIN REACH. WILL CONTINUE TO MONITOR.
[2020-11-30 08:00] VITALS: BP 132/90
[2020-11-30] MEDS ORDERED: ATOR20TA PO (09:24)
[2020-11-30] MEDS ORDERED: METO25TA PO (09:24)
[2020-11-30] MEDS ORDERED: DIGO-119 PO (09:24)
[2020-11-30] MEDS ORDERED: LISI-486 PO (09:24)
[2020-11-30] MEDS ORDERED: FURO-570 PO (09:24)
[2020-11-30] MEDS ORDERED: APIX5TAB PO (09:24)
[2020-11-30] MEDS ORDERED: APIXABAN 2.5 MG TAB PO SCH (09:40)
[2020-11-30] MEDS ORDERED: POTASSIUM CHLORIDE 10 MEQ TABER PO SCH (09:40)
[2020-11-30] MEDS: PANTOPRAZOLE 40 MG TABEC PO SCH (09:48)
[2020-11-30] MEDS: METOPROLOL 50 MG TAB PO SCH (09:48)
[2020-11-30] MEDS: DIGOXIN 0.25 MG TAB PO SCH (09:50)
--- NOTE | 2020-11-30 10:10 | NUR ---
ALL SCHEDULED MEDS GIVEN. PT IS STABLE. NO DISTRESS NOTED. WILL CONTINUE TO MONITOR.
[2020-11-30 11:18] VITALS: BP 132/90
--- NOTE | 2020-11-30 11:40 | NUR ---
ENDORSED DISCHARGE INSTRUCTIONS TO PATIENT. PATIENT VERBALIZED UNDERSTANDING AND SIGNED THE DISCHARGE FORMS.
[2020-11-30 12:00] VITALS: BP 118/84
--- NOTE | 2020-11-30 13:35 | NUR ---
PATIENT DISCHARGED OFF THE UNIT. FAMILY PICKED UP PATIENT AT THE FRONT OF THE LOBBY. IV AND ID BAND REMOVED. PT WAS STABLE PRIOR TO DISCHARGE.
[2020-11-30] MEDS ORDERED: FUROSEMIDE 40 MG TAB PO SCH (17:00)
[2020-12-01] MEDS ORDERED: lisinopriL 5 MG TAB PO SCH (09:00)
== END 2020-11-30 13:35 | disposition home or self-care (01) | DRG 720 ==
LOC: MED 12:23 → MIC 16:09 → MTU 11-28 17:39
PROVIDERS: ADMIT Family Medicine; ATTEND Family Medicine
DX: A41.9 Sepsis, unspecified organism (principal); J96.01 Acute respiratory failure with hypoxia; I50.43 Acute on chronic combined systolic (congestive) and diastolic (congestive) heart failure; E87.0 Hyperosmolality and hypernatremia; I31.3 Pericardial effusion (noninflammatory); E86.0 Dehydration; I48.91 Unspecified atrial fibrillation; N28.1 Cyst of kidney, acquired; F17.200 Nicotine dependence, unspecified, uncomplicated; K42.9 Umbilical hernia without obstruction or gangrene; N39.0 Urinary tract infection, site not specified; Z90.49 Acquired absence of other specified parts of digestive tract; Z88.8 Allergy status to other drugs, medicaments and biological substances
CPT/HCPCS: 36415; 71045; 74018; 76604; 80048; 80053; 80162; 80305; 81001; 82150; 83036; 83605; 83690; 83735; 83880; 84100; 84436; 84439; 84443; 84479; 84484; 85025; 85610; 85730; 87040; 87081; 93005; 96361; 96374; 96375; 99291; J0282; J0696; J1160; J1644; J1940; J2405; J3490; J7060